=== PATIENT | female | born 1985 ===

== ENCOUNTER 2018-10-11 10:48 | Emergency (ER) | payer MEDICAID ==
--- NOTE | 2018-10-11 11:08 | Emergency Department Record ---
History of Present Illness - General Chief complaint: ENT Stated complaint: THROAT/JAW PAIN Time Seen by Provider: 10/11/18 11:01 Mode of Arrival: Ambulatory - History of Present Illness Initial comments: right sided jaw pain and this started 2 days ago and seen in [place] urgent care and given augmentin. This started out as a sore throat and seen at urgent care and given augmentin and still taking it. difficulty opening her mouth because of pain on the right side of jaw and she has ulcers and redness of the skin over the upper part of the jaw behind the last molar. No pain percussing the teeth. Augmentin 875 mg BID for 7 days Onset/Timin -: Days(s) Severity: Moderate Severity scale (1-10): 7 Quality: Aching Consistency: Getting worse - Related Data Home Medications Medication Instructions Recorded Confirmed Last Taken Amoxicillin/Potassium Clav 1 tab PO BID 10/11/18 10/11/18 10/11/18 [Augmentin 875-125 Tablet] Allergies Allergy/AdvReac Type Severity Reaction Status Date / Time latex Allergy Intermediate hives Verified 10/11/18 11:01 Travel Screening - Travel/Exposure Within Last 30 Days Have you traveled within the last 30 days?: No - Travel/Exposure Within Last Year Have you traveled outside the [place] in the last year?: No - Additonal Travel Details Have you been exposed to anyone with a communicable illness?: No - Travel Symptoms Symptom Screening: None Review of Systems Reviewed: No additional complaints except as noted below Constitutional: Reports: As per HPI. Denies: Chills, Fever, Malaise, Night sweats, Weakness, Weight change Eyes: Reports: As per HPI. Denies: Eye discharge, Eye pain, Photophobia, Vision change ENT: Reports: As per HPI, Throat pain. Denies: Congestion, Dental pain, Ear pain, Epistaxis, Hearing loss Respiratory: Reports: As per HPI. Denies: Cough, Dyspnea, Hemoptysis, Stridor, Wheezes Cardiovascular: Reports: As per HPI. Denies: Arrhythmia, Chest pain, Dyspnea on exertion, Edema, Murmurs, Orthopnea, Palpitations, Paroxysmal nocturnal dyspnea, Rheumatic Fever, Syncope Endocrine: Reports: As per HPI. Denies: Fatigue, Heat or cold intolerance, Polydipsia, Polyuria Gastrointestinal: Reports: As per HPI. Denies: Abdominal pain, Constipation, Diarrhea, Hematemesis, Hematochezia, Melena, Nausea, Vomiting Genitourinary: Reports: As per HPI. Denies: Abnormal menses, Discharge, Dyspareunia, Dysuria, Frequency, Hematuria, Incontinence, Retention, Urgency Musculoskeletal: Reports: As per HPI. Denies: Arthralgia, Back pain, Gout, Joint swelling, Myalgia, Neck pain Skin: Reports: As per HPI. Denies: Bruising, Change in color, Change in hair/nails, Lesions, Pruritus, Rash Neurological: Reports: As per HPI. Denies: Abnormal gait, Confusion, Headache, Numbness, Paresthesias, Seizure, Tingling, Tremors, Vertigo, Weakness Psychiatric: Reports: As per HPI. Denies: Anxiety, Auditory hallucinations, Depression, Homicidal thoughts, Suicidal thoughts, Visual hallucinations Hematological/Lymphatic: Reports: As per HPI. Denies: Anemia, Blood Clots, Easy bleeding, Easy bruising, Swollen glands Past Medical History - SOCIAL HISTORY Smoking Status: Never smoker Alcohol Use: Occasional Drug Use: None - RESPIRATORY Hx Respiratory Disorders: No - CARDIOVASCULAR Hx Cardio Disorders: Yes Hx Irregular Heartbeat: Yes (A-fib with ablation) - NEURO Hx Neuro Disorders: No - GI Hx GI Disorders: No - Hx Genitourinary Disorders: Yes Hx UTI: Yes - ENDOCRINE Hx Endocrine Disorders: No Hx Diabetes: No Hx Thyroid Disease: No - MUSCULOSKELETAL Hx Musculoskeletal Disorders: Yes - PSYCH Hx Psych Problems: No Hx Depression: Yes (not treated) - HEMATOLOGY/ONCOLOGY Hx Hematology/Oncology Disorders: No Hx Anemia: No Hx Blood Disorders: No Hx Bruising: No Hx Cancer: No Family Medical History Any Significant Family History?: Yes Hx Cancer: Grandparents Physical Exam - General General Appearance: Alert, Oriented x3, Cooperative, No acute distress - Head Head exam: Normal inspection - Eye Eye exam: Normal appearance, PERRL Pupils: Normal accommodation - ENT ENT exam: Mucous membranes moist, Normal external ear exam, TM's normal bilaterally, Other (ulcers seen behind the right molar going up to the condyle) Ear exam: Normal external inspection. negative: External canal tenderness Nasal Exam: Normal inspection. negative: Discharge, Sinus tenderness Mouth exam: Normal external inspection, Tongue normal Teeth exam: Normal inspection. negative: Dental caries Throat exam: Normal inspection. negative: Tonsillar erythema, Tonsillar exudate - Neck Neck exam: Normal inspection, Full ROM. negative: Tenderness - Respiratory Respiratory exam: Normal lung sounds bilaterally. negative: Respiratory distress - Cardiovascular Cardiovascular Exam: Regular rate, Normal rhythm, Normal heart sounds - GI/Abdominal GI/Abdominal exam: Soft, Normal bowel sounds. negative: Tenderness - Rectal Rectal exam: Deferred - exam: Deferred - Extremities Extremities exam: Normal inspection, Full ROM, Normal capillary refill. negative: Tenderness - Back Back exam: Reports: Normal inspection, Full ROM. Denies: Muscle spasm, Rash noted, Tenderness - Neurological Neurological exam: Alert, Normal gait, Oriented X3, Reflexes normal - Psychiatric Psychiatric exam: Normal affect, Normal mood - Skin Skin exam: Dry, Intact, Normal color, Warm Course Vital Signs 10/11/18 10:52 Temperature 97.8 F Pulse Rate [ 65 Pulse Ox Probe] Respiratory 16 Rate Blood Pressure 132/73 [Left Arm] Pulse Ox 97 Medical Decision Making - Lab Data Result diagrams: 10/11/18 11:23 Disposition Clinical Impression: Acute bacterial pharyngitis Disposition: Home, Self-Care Condition: (1) Good Instructions: Pharyngitis (ED) Additional Instructions: continue augmentin till gone fluids follow up with family DR in 2 days Forms: Patient Portal Access Time of Disposition: 11:50 Quality - Quality Measures Quality Measures: N/A - Blood Pressure Screening Does Patient Have Any of the Following: No Blood Pressure Classification: Pre-Hypertensive BP Reading Systolic Measurement: 132 Diastolic Measurement: 73 Screening for High Blood Pressure: < Pre-Hypertensive BP, F/U Documented > [[id number]] Pre-Hypertensive Follow-up Interventions: Referral to alternative/primary care provider.
[2018-10-11] MEDS ORDERED: DEXAMETHASONE SOD PHOSPHATE 10MG/ML VIAL PO ONE (11:17)
[2018-10-11 11:26] LABS: ABSOLUTE NEUTROPHIL COUNT 4.42; BASO % 0.3 % (0-6); EOS % 1.8 % (0-6); GRAN % 70.7 % (47-80); HEMATOCRIT 41.1 % (35.0-47.0); HEMOGLOBIN 13.8 gm/dl (11.6-16.0); LYMPH % 20.5 % (16-45); MEAN CELL VOLUME 90.9 fl (81-97); MEAN CORPUSCULAR HEMOGLOBIN 30.5 pg (27-33); MEAN CORPUSCULAR HGB CONC 33.6 g/dl (32-36); MEAN PLATELET VOLUME 9.9 fl (7.4-10.4); MONO % 6.7 % (0-9); PLATELET COUNT 231 K/uL (130-400); RED BLOOD COUNT 4.52 M/uL (3.80-5.40); RED CELL DISTRIBUTION WIDTH 12.7 % (11.5-14.5); WHITE BLOOD COUNT W/O DIFF 6.3 K/uL (4.2-12.2)
[2018-10-11] MEDS ORDERED: CEFTRIAXONE SODIUM 2GM VIAL IM ONE (11:32)
== END 2018-10-11 12:12 | disposition home or self-care (01) ==
LOC: ER 10:48
DX: J02.8 Acute pharyngitis due to other specified organisms (principal); I48.91 Unspecified atrial fibrillation
CPT/HCPCS: 99284; 96372; 99283; 85025; 87880; 86308; J1100